=== PATIENT | female | born 1985 | race Asian ===

== ENCOUNTER 2017-01-03 17:55 | Emergency (ER) | payer OTHER ==
[~2017-01-03] VITALS: Ht 160 cm; Wt 120.2 kg
[2017-01-03 19:40] VITALS: BP 149/87; TEMP 98.3
== END 2017-01-03 19:47 | disposition home or self-care (01) ==
LOC: ED 17:55
PROC: 0CQ0XZZ Repair Upper Lip, External Approach (ICD-10-PCS; principal; 2017-01-03)
DX: S01.511A Laceration without foreign body of lip, initial encounter (principal); W20.8XXA Other cause of strike by thrown, projected or falling object, initial encounter
CPT/HCPCS: 99283

== ENCOUNTER 2017-01-10 17:03 | Emergency (ER) | payer OTHER ==
[~2017-01-10] VITALS: Ht 157.5 cm; Wt 113.4 kg
[2017-01-10 17:12] VITALS: BP 177/93; TEMP 97.3
== END 2017-01-10 17:32 | disposition home or self-care (01) ==
LOC: ED 17:03
DX: Z48.02 Encounter for removal of sutures (principal)

== ENCOUNTER 2019-10-10 14:58 | Outpatient (CLI) | payer OTHER ==
[2019-10-10 15:19] LABS: PLATELET COUNT 392 K/uL (152-353)
[2019-10-10 15:30] LABS: POTASSIUM 4.6 mmol/L (3.6-5.2)
== END 2019-10-10 23:59 | disposition home or self-care (01) ==
LOC: LAB 14:58
PROVIDERS: Nurse Practitioner Family
DX: F32.9 Major depressive disorder, single episode, unspecified (principal); I10 Essential (primary) hypertension; E11.9 Type 2 diabetes mellitus without complications; E66.9 Obesity, unspecified; R53.83 Other fatigue; R53.81 Other malaise
CPT/HCPCS: 80053; 80061; 82306; 83036; 84439; 84443; 84481; 85027

== ENCOUNTER 2019-10-19 14:07 | Outpatient (CLI) | payer OTHER | END 2019-10-19 23:12 | disposition home or self-care (01) | LOC: LAB 14:07 | DX: D64.9 Anemia, unspecified (principal); R53.81 Other malaise; R53.83 Other fatigue; E53.8 Deficiency of other specified B group vitamins | CPT/HCPCS: 82607; 82728; 82746; 83540; 86038 ==

== ENCOUNTER 2019-11-07 09:22 | Outpatient (CLI) | payer OTHER | END 2019-11-07 19:28 | disposition home or self-care (01) | LOC: CT 09:22 | DX: R10.9 Unspecified abdominal pain (principal); K46.9 Unspecified abdominal hernia without obstruction or gangrene; R11.2 Nausea with vomiting, unspecified | CPT/HCPCS: Q9963 ==

== ENCOUNTER 2020-03-27 10:05 | Outpatient (CLI) | payer OTHER | END 2020-03-27 21:45 | disposition home or self-care (01) | LOC: RAD 10:05 → LAB 10:05 → RAD 21:45 | PROVIDERS: ATTEND Nurse Practitioner Family | DX: M25.561 Pain in right knee (principal); N28.9 Disorder of kidney and ureter, unspecified | CPT/HCPCS: 80053 ==

== ENCOUNTER 2020-05-13 14:50 | Outpatient (CLI) | payer OTHER | END 2020-05-13 19:27 | disposition home or self-care (01) | LOC: MRI 14:50 | PROVIDERS: ATTEND Orthopaedic Surgery | DX: M25.561 Pain in right knee (principal); M25.562 Pain in left knee; M17.0 Bilateral primary osteoarthritis of knee; S83.242A Other tear of medial meniscus, current injury, left knee, initial encounter ==

== ENCOUNTER 2020-08-06 13:23 | Outpatient (CLI) | payer OTHER ==
[2020-08-12 17:36] LABS: PLATELET COUNT 331 K/uL (152-353)
[2020-08-12 17:41] LABS: POTASSIUM 4.6 mmol/L (3.6-5.2)
== END 2020-08-06 17:00 | disposition home or self-care (01) ==
LOC: LAB 13:23
PROVIDERS: ATTEND Nurse Practitioner Family
DX: E66.9 Obesity, unspecified (principal); E11.9 Type 2 diabetes mellitus without complications; I10 Essential (primary) hypertension; G62.9 Polyneuropathy, unspecified; R53.81 Other malaise; R53.83 Other fatigue
CPT/HCPCS: 36415; 80053; 80061; 82306; 82607; 84439; 84443; 85027

== ENCOUNTER 2020-08-21 13:42 | Outpatient (CLI) | payer OTHER ==
[2020-08-21 13:57] LABS: PLATELET COUNT 322 K/uL (152-353)
== END 2020-08-21 21:41 | disposition home or self-care (01) ==
LOC: LAB 13:42
PROVIDERS: ATTEND Nurse Practitioner Family
DX: D64.9 Anemia, unspecified (principal); R53.83 Other fatigue; N28.9 Disorder of kidney and ureter, unspecified; D50.9 Iron deficiency anemia, unspecified; E66.9 Obesity, unspecified; E11.9 Type 2 diabetes mellitus without complications; I10 Essential (primary) hypertension; G62.9 Polyneuropathy, unspecified; R53.81 Other malaise
CPT/HCPCS: 82728; 83036; 83540; 85027

== ENCOUNTER 2021-02-27 13:35 | Outpatient (CLI) | payer OTHER | END 2021-02-27 19:14 | disposition home or self-care (01) | LOC: RAD 13:35 | PROVIDERS: ATTEND Nurse Practitioner Family | DX: M25.561 Pain in right knee (principal); R60.0 Localized edema ==

== ENCOUNTER 2021-05-01 13:14 | Outpatient (CLI) | payer OTHER | END 2021-05-01 20:01 | disposition home or self-care (01) | LOC: RAD 13:14 → EDSTATUS 13:14 → RAD 20:01 | PROVIDERS: ATTEND Nurse Practitioner Family | DX: K59.00 Constipation, unspecified (principal); R10.9 Unspecified abdominal pain; R11.0 Nausea ==

== ENCOUNTER 2021-05-02 18:28 | Emergency (ER) | payer OTHER ==
[~2021-05-02] VITALS: Ht 162.6 cm; Wt 111.1 kg
[2021-05-02 19:22] LABS: PLATELET COUNT 310 K/uL (152-353); POTASSIUM 3.4 mmol/L (3.6-5.2)
[2021-05-03 00:15] VITALS: BP 124/76; TEMP 97.4
== END 2021-05-03 00:20 | disposition home or self-care (01) ==
LOC: ED 18:28
PROVIDERS: Emergency Medicine
DX: K29.60 Other gastritis without bleeding (principal)
CPT/HCPCS: 36415; 80053; 81000; 84484; 85027; 85610; 87088; 96360; 96375; 99284; J2270; J2405; J3490; Q9963

== ENCOUNTER 2021-05-06 12:38 | Outpatient (CLI) | payer OTHER | END 2021-05-06 18:58 | disposition home or self-care (01) | LOC: LAB 12:38 | PROVIDERS: ATTEND Nurse Practitioner Family | DX: R11.2 Nausea with vomiting, unspecified (principal); R10.9 Unspecified abdominal pain | CPT/HCPCS: 83036; 86677 ==